=== PATIENT | female | born 1985 | race Asian ===

== ENCOUNTER 2018-04-06 06:56 | Inpatient (IN) | payer OTHER ==
[2018-04-06] MEDS ORDERED: OXYTOCIN 30 UNITS/LR 500 ML BAG IV (07:00)
[2018-04-06] MEDS: LACTATED RINGER'S 1,000 ML IV ×2 (07:45→21:50)
[2018-04-06] MEDS ORDERED: LACTATED RINGER'S 1,000 ML IV (07:47)
[2018-04-06] MEDS: OXYTOCIN 30 UNITS/LR 500 ML IV (07:54)
[2018-04-06] MEDS ORDERED: CARBOPROST 250 MCG INJ IM ×2 (08:00)
[2018-04-06] MEDS ORDERED: METHYLERGONOVINE 0.2 MG INJ IM ×2 (08:00)
[2018-04-06] MEDS ORDERED: MISOPROSTOL 200 MCG TAB PR ×2 (08:00)
[2018-04-06] MEDS ORDERED: NA PHOSPHATE/BIPHOS 133 ML ENEMA PR (08:00)
[2018-04-06] MEDS ORDERED: CEFAZOLIN 2 GM/50 ML (PMX) 50 ML IVPB (08:00)
[2018-04-06] MEDS ORDERED: HYDROCODONE/APAP (5/325) TAB PO ×2 (08:00)
[2018-04-06] MEDS ORDERED: METHYLERGONOVINE 0.2 MG TAB PO (08:00)
[2018-04-06] MEDS ORDERED: OXYTOCIN 30 UNITS/LR 500 ML IV ×3 (08:00)
[2018-04-06 08:13] LABS: ADD MAN DIFF? NO
[2018-04-06 08:15] LABS: WHITE BLOOD COUNT 9.7 10^3/ul (4.8-10.8)
[2018-04-06 08:15] LABS: ABNORMAL IP MESSAGE 1; BASOPHILS % 0.4 % (0.0-2.0); EOSINOPHILS # 0.1 10^3/ul (0.0-0.5); EOSINOPHILS % 0.9 % (0.0-7.0); HEMATOCRIT 38.6 % (37.0-47.0); HEMOGLOBIN 12.4 g/dl (12.0-16.0); LYMPHOCYTES # 2.1 10^3/ul (0.8-2.9); LYMPHOCYTES % 21.7 % (15.0-51.0); MEAN CORPUSCULAR HEMOGLOBIN 25.8 pg (29.0-33.0); MEAN CORPUSCULAR HGB CONC 32.1 g/dl (32.0-37.0); MEAN CORPUSCULAR VOLUME 80.4 fl (82.0-101.0); MEAN PLATELET VOLUME 13.1 fl (7.4-10.4); MONOCYTE # 0.9 10^3/ul (0.3-0.9); MONOCYTES % 9.1 % (0.0-11.0); NEUTROPHIL # 6.5 10^3/ul (1.6-7.5); NEUTROPHILS % 66.9 % (39.0-77.0); PLATELET COUNT 172 10^3/UL (140-415); RED CELL DISTRIBUTION WIDTH 16.9 % (11.5-14.5)
[2018-04-06 08:21] LABS: POSITIVE DIFF @See below
[2018-04-06 08:34] LABS: PROTIME 12.2 Sec (11.9-14.9)
[2018-04-06 08:35] LABS: PARTIAL THROMBOPLASTIN TIME 27.8 Sec (25.0-35.0)
[2018-04-06] MEDS: SENNA/DOCUSATE NA (8.6MG/50MG) TAB PO ×2 (09:00→20:36)
[2018-04-06] MEDS ORDERED: PHENYLephrine (100 MCG/ML) 10ML SYG ×2 (09:10→09:58)
[2018-04-06] MEDS ORDERED: morphine SULFATE/PF (10 MG/10 ML) INJ (09:10)
[2018-04-06] MEDS ORDERED: BUPIVACAINE 0.75%/DEXT (SPINAL) 2 ML INJ (09:11)
[2018-04-06] MEDS ORDERED: OXYTOCIN 10 UNIT INJ (09:11)
[2018-04-06] MEDS ORDERED: ONDANSETRON 4 MG INJ (09:11)
[2018-04-06] MEDS: CEFAZOLIN 2 GM/50 ML (PMX) 50 ML IVPB ×2 (09:26→17:08)
[2018-04-06] MEDS ORDERED: FENTAnyl 50 MCG/ML VIAL (09:59)
[2018-04-06 10:16] LABS: HEPATITIS B SURFACE ANTIGEN NEGATIVE (NEGATIVE)
[2018-04-06] MEDS ORDERED: ONDANSETRON 4 MG INJ IV (11:00)
[2018-04-06] MEDS ORDERED: NALOXONE (0.4 MG/ML) INJ IV (11:00)
[2018-04-06] MEDS ORDERED: morphine 2 MG INJ IV (11:00)
[2018-04-06] MEDS: DIPHENHYDRAMINE 50 MG INJ IV ×2 (11:16→17:03)
[2018-04-06] MEDS: KETOROLAC 30 MG INJ IV ×2 (12:39→20:56)
[2018-04-06 15:35] LABS: RAPID PLASMA REAGIN NONREACTIVE (NR)
[2018-04-07] MEDS: CEFAZOLIN 2 GM/50 ML (PMX) 50 ML IVPB (00:31)
[2018-04-07] MEDS: LANOLIN 7 GM TUBE TOP (03:56)
[2018-04-07] MEDS: KETOROLAC 30 MG INJ IV ×3 (06:15→18:06)
[2018-04-07] MEDS: LACTATED RINGER'S 1,000 ML IV (06:15)
[2018-04-07 09:29] LABS: ADD MAN DIFF? NO
[2018-04-07 09:37] LABS: BASOPHILS % 0.2 % (0.0-2.0); EOSINOPHILS # 0.1 10^3/ul (0.0-0.5); HEMOGLOBIN 11.1 g/dl (12.0-16.0); LYMPHOCYTES # 1.6 10^3/ul (0.8-2.9); LYMPHOCYTES % 14.7 % (15.0-51.0); MEAN CORPUSCULAR HEMOGLOBIN 26.1 pg (29.0-33.0); MEAN CORPUSCULAR HGB CONC 31.7 g/dl (32.0-37.0); MEAN CORPUSCULAR VOLUME 82.4 fl (82.0-101.0); MEAN PLATELET VOLUME 12.7 fl (7.4-10.4); MONOCYTE # 0.9 10^3/ul (0.3-0.9); NEUTROPHIL # 8.1 10^3/ul (1.6-7.5); NEUTROPHILS % 75.5 % (39.0-77.0); PLATELET COUNT 149 10^3/UL (140-415); RED BLOOD COUNT 4.25 10^6/ul (4.20-5.40); RED CELL DISTRIBUTION WIDTH 17.2 % (11.5-14.5)
[2018-04-07 09:37] LABS: WHITE BLOOD COUNT 10.8 10^3/ul (4.8-10.8)
[2018-04-07] MEDS: SENNA/DOCUSATE NA (8.6MG/50MG) TAB PO ×2 (09:51→20:37)
[2018-04-07] MEDS ORDERED: KETOROLAC 30 MG INJ IV (20:00)
[2018-04-07] MEDS: OXYCODONE/ACETAMINOPHEN (5/325) TAB PO (20:38)
[2018-04-08] MEDS: IBUPROFEN 800 MG TAB PO ×3 (06:00→22:01)
[2018-04-08] MEDS: KETOROLAC 30 MG INJ IV (06:18)
[2018-04-08 07:14] LABS: WHITE BLOOD COUNT 10.9 10^3/ul (4.8-10.8)
[2018-04-08 07:14] LABS: ADD MAN DIFF? NO
[2018-04-08 07:15] LABS: BASOPHILS % 0.3 % (0.0-2.0); EOSINOPHILS # 0.1 10^3/ul (0.0-0.5); EOSINOPHILS % 1.3 % (0.0-7.0); HEMATOCRIT 35.7 % (37.0-47.0); HEMOGLOBIN 11.5 g/dl (12.0-16.0); LYMPHOCYTES # 2.6 10^3/ul (0.8-2.9); LYMPHOCYTES % 23.3 % (15.0-51.0); MEAN CORPUSCULAR HEMOGLOBIN 26.3 pg (29.0-33.0); MEAN CORPUSCULAR HGB CONC 32.2 g/dl (32.0-37.0); MEAN CORPUSCULAR VOLUME 81.7 fl (82.0-101.0); MEAN PLATELET VOLUME 11.3 fl (7.4-10.4); MONOCYTE # 0.9 10^3/ul (0.3-0.9); MONOCYTES % 8.6 % (0.0-11.0); NEUTROPHIL # 7.2 10^3/ul (1.6-7.5); NEUTROPHILS % 65.9 % (39.0-77.0); PLATELET COUNT 159 10^3/UL (140-415); RED BLOOD COUNT 4.37 10^6/ul (4.20-5.40); RED CELL DISTRIBUTION WIDTH 17.3 % (11.5-14.5)
[2018-04-08] MEDS: SENNA/DOCUSATE NA (8.6MG/50MG) TAB PO ×2 (09:14→21:15)
[2018-04-08] MEDS: OXYCODONE/ACETAMINOPHEN (5/325) TAB PO ×2 (09:14→17:03)
[2018-04-08] MEDS: BISACODYL (EC) 5 MG TAB PO (15:21)
[2018-04-09] MEDS: OXYCODONE/ACETAMINOPHEN (5/325) TAB PO (05:31)
[2018-04-09] MEDS: IBUPROFEN 800 MG TAB PO ×2 (06:00→13:07)
[2018-04-09] MEDS: DIPHTH/TET/ACEL PERTUSS (ADULT) 0.5 ML VIAL IM* (07:24)
[2018-04-09] MEDS: MEASLES,MUMPS,RUBELLA VACCINE INJ SC* (07:25)
[2018-04-09] MEDS: SENNA/DOCUSATE NA (8.6MG/50MG) TAB PO (08:47)
[2018-04-09] MEDS: LANOLIN 7 GM TUBE TOP (08:47)
== END 2018-04-09 14:15 | disposition home or self-care (01) | DRG 766 ==
LOC: L-D 06:56 → PP1 12:52
PROVIDERS: Obstetrics & Gynecology
PROC: 10D00Z1 Extraction of Products of Conception, Low, Open Approach (ICD-10-PCS; principal; 2018-04-06 09:00)
DX: O32.1XX0 Maternal care for breech presentation, not applicable or unspecified (principal); O34.219 Maternal care for unspecified type scar from previous cesarean delivery; O99.214 Obesity complicating childbirth; E66.01 Morbid (severe) obesity due to excess calories; Z68.34 Body mass index [BMI] 34.0-34.9, adult; Z3A.39 39 weeks gestation of pregnancy; Z37.0 Single live birth
CPT/HCPCS: 85025; 85610; 85730; 86592; 86850; 86900; 86901; 87340; 99464